=== PATIENT | male | born 1950 | race Caucasian/White ===

== ENCOUNTER 2017-07-08 17:30 | Emergency (ER) | payer OTHER, MEDICARE, SELFPAY ==
[2017-07-08 18:30] LABS: HEMATOCRIT 43.9 % (42.0-52.0); HEMOGLOBIN 15.5 g/dl (13.5-17.5); MEAN CORPUSCULAR HEMOGLOBIN 33.9 pg (27.0-33.0); MEAN CORPUSCULAR HGB CONC 35.3 g/dl (32.0-36.5); MEAN CORPUSCULAR VOLUME 96.1 fl (80.0-96.0); PLATELET COUNT, AUTOMATED 223 10^3/uL (150-450); RED BLOOD COUNT 4.57 10^6/uL (4.30-6.10); RED CELL DISTRIBUTION WIDTH 12.3 % (11.5-14.5); WHITE BLOOD COUNT 6.1 10^3/uL (4.0-10.0)
[2017-07-08 18:48] LABS: AMMONIA 34 uMOL/L (<32)
[2017-07-08 18:53] LABS: ACETAMINOPHEN LEVEL < 2.0 UG/ML (10.0-30.0); ALBUMIN 3.6 GM/DL (3.2-5.2); ALBUMIN/GLOBULIN RATIO 1.38 (1.00-1.93); ALKALINE PHOSPHATASE 63 U/L (45-117); ALT/SGPT 66 U/L (12-78); ANION GAP 12 MEQ/L (8-16); AST/SGOT 87 U/L (7-37); BILIRUBIN,DIRECT 0.2 MG/DL (0.0-0.2); BILIRUBIN,TOTAL 0.5 MG/DL (0.2-1.0); BLOOD UREA NITROGEN 7 MG/DL (7-18); CALCIUM LEVEL 7.7 MG/DL (8.8-10.2); CARBON DIOXIDE LEVEL 24 MEQ/L (21-32); CHLORIDE LEVEL 99 MEQ/L (98-107); CPK CREATINE PHOSPHOKINASE 135 U/L (39-308); CREATININE FOR GFR 0.51 MG/DL (0.70-1.30); GLOMERULAR FILTRATION RATE > 60.0 (>49); GLUCOSE, FASTING 85 MG/DL (70-100); SALICYLATE LEVEL < 1.7 MG/DL (5.0-30.0); SODIUM LEVEL 135 MEQ/L (136-145); TOTAL PROTEIN 6.2 GM/DL (6.4-8.2); TROPONIN I < 0.02 NG/ML (< 0.10)
[2017-07-08 18:56] LABS: CK-MB VALUE MASS 12.3 NG/ML (<3.6); ETHYL ALCOHOL (ETHANOL) 0.371 % (0.000-0.010); FREE T4 1.12 NG/DL (0.76-1.46); MB/CK RELATIVE INDEX 9.11 (< OR =4)
[2017-07-08 19:19] LABS: KETONE, URINE AUTO RFX 1+ mg/dL (NEGATIVE); LEUKOCYTE ESTERASE UR AUTO RFX NEGATIVE (NEGATIVE); MUCUS, URINE RFX SMALL (NEGATIVE); NITRITE, URINE AUTO RFX NEGATIVE (NEGATIVE); RBC, URINE AUTO RFX 8 /HPF (0-3); SPECIFIC GRAVITY UR AUTO RFX 1.018 (1.002-1.035); SQUAM EPITHELIAL CELL UR AURFX 0 /HPF (0-6); WBC, URINE AUTO RFX 2 /HPF (0-3)
[2017-07-08 19:52] LABS: AMPHETAMINES LEVEL URINE NEGATIVE (NEGATIVE); BARBITURATES URINE NEGATIVE (NEGATIVE); BENZODIAZEPINES URINE NEGATIVE (NEGATIVE); CANNABINOIDS URINE NEGATIVE (NEGATIVE); COCAINE METABOLITE URINE NEGATIVE (NEGATIVE); METHADONE URINE NEGATIVE (NEGATIVE); OPIATES URINE NEGATIVE (NEGATIVE); PHENCYCLIDINE URINE NEGATIVE (NEGATIVE)
[2017-07-09] MEDS: IPRATROPIUM 0.5MG/ALBUTEROL 2.5MG INH SOL UD 3ML (DUONEB)(J7620) NEB (00:13)
[2017-07-09] MEDS: LISINOPRIL 10 MG TAB PO (00:34)
== END 2017-07-09 11:01 ==
LOC: M ED 17:30
DX: F10.129 Alcohol abuse with intoxication, unspecified (principal); R45.851 Suicidal ideations; R18.8 Other ascites; Z79.899 Other long term (current) drug therapy
CPT/HCPCS: 71045

== ENCOUNTER → 2017-10-15 | Outpatient (CLI) | payer MEDICARE, OTHER | LOC: M RAD 12:07 | DX: J34.89 Other specified disorders of nose and nasal sinuses (principal) | CPT/HCPCS: 70486 ==

== ENCOUNTER → 2019-06-08 | Outpatient (CLI) | payer MEDICARE, OTHER ==
[~2019-06-08] MED LIST: ALBU83IN INH; LISI10TA4 PO
--- NOTE | 2019-06-08 11:27 | REP ---
REASON: Tobacco abuse. PRIORS: None. As per the protocol only lung window images were sent to the read station for the interpretation. There is lung field hyperexpansion. There is mild cylindrical bronchiectasis. There are a few curvilinear and asymmetric lung densities particularly in the inferior right upper lobe and right middle lobe. There is biapical pleuroparenchymal scarring right greater than left. There are pleural blebs right greater than left in the apical regions. There are no abnormal nodules. Grossly the mediastinum and pulmonary poppy are within normal limits. Grossly the imaged upper abdomen and imaged osseous structures are within normal limits. IMPRESSION: Emphysematous changes and other chronic lung field changes as described above. There are no abnormal nodules. Lung-RADS category 1S exam. Electronically Signed by Ernie Dietz DO 06/08/2019 11:52 A
== END ==
LOC: M RAD 10:23
PROVIDERS: ATTEND Internal Medicine Pulmonary Disease
DX: Z87.891 Personal history of nicotine dependence (principal)

== ENCOUNTER → 2021-01-25 | Outpatient (REF) | payer MEDICARE, OTHER ==
[~2021-01-25] MED LIST changes: +LISI10TA22 PO; -LISI10TA4 PO
== END ==
LOC: M LAB REF 17:31
PROVIDERS: ATTEND Orthopaedic Surgery
DX: M72.0 Palmar fascial fibromatosis [Dupuytren] (principal)

== ENCOUNTER → 2021-08-01 | Outpatient (REF) ==
[~2021-08-01] MED LIST changes: +ALBU2.5V10 INH; -ALBU83IN INH
== END ==
LOC: M LAB LCGH 10:46
DX: Z79.899 Other long term (current) drug therapy (principal)

== ENCOUNTER → 2021-08-02 | Outpatient (REF) | LOC: M LAB LCGH 09:08 | PROVIDERS: ATTEND Internal Medicine | DX: Z79.899 Other long term (current) drug therapy (principal) ==

== ENCOUNTER → 2022-05-02 | Outpatient (CLI) | payer MEDICARE, OTHER ==
[~2022-05-02] MED LIST changes: +BARIUM SULFATE 700 MG TABLET (E-Z-DISK) As Ordered ONE; +E-Z-PAQUE 96% w/w SUSP 176GM BTL As Ordered ONE; +VARIBAR NECTAR 40% w/v 240ML SUSP BTL As Ordered ONE; +VARIBAR PUDDING 40% w/v 230ML TUBE As Ordered ONE
== END ==
LOC: M RAD 10:33
PROVIDERS: ATTEND Internal Medicine Critical Care Medicine
DX: R13.10 Dysphagia, unspecified (principal)

== ENCOUNTER 2022-05-23 13:43 | Outpatient (RCR) | payer MEDICARE, OTHER ==
[~2022-05-23 13:43] MED LIST changes: -BARIUM SULFATE 700 MG TABLET (E-Z-DISK) As Ordered ONE; -E-Z-PAQUE 96% w/w SUSP 176GM BTL As Ordered ONE; -VARIBAR NECTAR 40% w/v 240ML SUSP BTL As Ordered ONE; -VARIBAR PUDDING 40% w/v 230ML TUBE As Ordered ONE
== END 2022-05-24 ==
LOC: M ST 13:43
PROVIDERS: ATTEND Internal Medicine Critical Care Medicine
DX: R13.13 Dysphagia, pharyngeal phase (principal)

== ENCOUNTER 2022-10-30 01:29 | Observation (INO) | payer MEDICARE, OTHER ==
[~2022-10-30] VITALS: Ht 172.7 cm; Wt 67.8 kg
[2022-10-30 02:22] LABS: VENOUS BASE EXCESS -3.3 (-2.0-2.0); VENOUS HCO3 24.6 MMOL/L (23.0-27.0); VENOUS O2 SATURATION 60.2 % (60.0-80.0); VENOUS PARTIAL PRESSURE CO2 54.3 mmHg (38.0-50.0); VENOUS PARTIAL PRESSURE O2 35.2 mmHg (30.0-50.0); VENOUS PH 7.274 UNITS (7.330-7.430); VENOUS STANDARD HCO3 20.7 MMOL/L; VENOUS TOTAL CO2 26.3 MMOL/L (24.0-28.0)
[2022-10-30 02:23] LABS: BASO # 0.1 10^3/uL (0.0-0.2); BASO % 0.4 % (0.0-1.0); EOS # 0.1 10^3/uL (0.0-0.5); EOS % 0.6 % (0.0-3.0); HEMATOCRIT 48.8 % (42.0-52.0); HEMOGLOBIN 16.8 g/dl (13.5-17.5); LYMPH % 8.3 % (24.0-44.0); MEAN CORPUSCULAR HGB CONC 34.4 g/dl (32.0-36.5); MEAN CORPUSCULAR VOLUME 95.9 fl (80.0-96.0); MONO # 0.9 10^3/uL (0.0-0.8); MONO % 7.7 % (2.0-8.0); NEUTROPHILS # 10.1 10^3/uL (1.5-8.5); NEUTROPHILS % 82.6 % (36.0-66.0); PLATELET COUNT, AUTOMATED 315 10^3/uL (150-450); RED BLOOD COUNT 5.09 10^6/uL (4.30-6.10); WHITE BLOOD COUNT 12.2 10^3/uL (4.0-10.0)
[2022-10-30 02:32] LABS: OSMOLALITY SERUM 322 MOSM/KG (280-301)
[2022-10-30 02:34] LABS: ETHYL ALCOHOL (ETHANOL) 0.232 % (0.000-0.010)
[2022-10-30 02:35] LABS: ACETAMINOPHEN LEVEL < 2.0 UG/ML (10.0-20.0); SALICYLATE LEVEL < 3.0 MG/DL (<30)
[2022-10-30 02:38] LABS: ALBUMIN 4.1 G/DL (3.2-5.2); ALKALINE PHOSPHATASE 84 U/L (46-116); ALT/SGPT 34 U/L (7.0-40); AST/SGOT 39 U/L (<34); BILIRUBIN,DIRECT 0.2 MG/DL (<0.4); BILIRUBIN,TOTAL 0.5 MG/DL (0.3-1.2); BLOOD UREA NITROGEN < 5 MG/DL (9-23); CALCIUM LEVEL 8.8 MG/DL (8.3-10.6); CARBON DIOXIDE LEVEL 26 MMOL/L (20-31); CHLORIDE LEVEL 94 MMOL/L (98-107); CK-MB VALUE MASS 2.2 NG/ML (<3.6); CPK CREATINE PHOSPHOKINASE 220 U/L (46-171); GLOMERULAR FILTRATION RATE > 60.0 (>42); GLUCOSE, FASTING 84 MG/DL (74-106); POTASSIUM SERUM 4.3 MMOL/L (3.5-5.1); SODIUM LEVEL 129 MMOL/L (136-145); THYROID STIMULATING HORMONE 3.115 uIU/ML (0.55-4.78)
[2022-10-30] MEDS ORDERED: ALBUTEROL SULFATE 2.5MG/0.5ML INH NEB SOLN INH ONE (02:45)
[2022-10-30] MEDS ORDERED: methylPREDNISolone 125MG 2ML VIAL IV ONE (02:45)
[2022-10-30] MEDS ORDERED: IPRATROPIUM 0.5MG/ALBUTEROL 2.5MG INH SOL UD 3ML (DUONEB) NEB ONE (02:45)
[2022-10-30] MEDS ORDERED: NS 1,000 ML IV ONE (02:50)
[2022-10-30 03:15] LABS: AMPHETAMINES LEVEL URINE NEGATIVE (NEGATIVE); BARBITURATES URINE NEGATIVE (NEGATIVE); BENZODIAZEPINES URINE NEGATIVE (NEGATIVE); CANNABINOIDS URINE NEGATIVE (NEGATIVE); COCAINE METABOLITE URINE NEGATIVE (NEGATIVE); METHADONE URINE NEGATIVE (NEGATIVE); OPIATES URINE NEGATIVE (NEGATIVE); PHENCYCLIDINE URINE NEGATIVE (NEGATIVE)
[2022-10-30] MEDS ORDERED: LIDOCAINE W/EPINEPHRINE 1% 20ML VIAL SC ONE (04:35)
[2022-10-30] MEDS ORDERED: LIDOCAINE 2% MDV 20ML VIAL SC ONE (04:45)
[2022-10-30] MEDS ORDERED: BOOSTRIX VACCINE (TETANUS/DIPHTH/ACEL. PERTUSSIS) 0.5ML SYR IM.IMMUN ONE (05:30)
[2022-10-30 06:50] LABS: CK-MB VALUE MASS 1.9 NG/ML (<3.6)
[2022-10-30 06:55] LABS: MB/CK RELATIVE INDEX 1.18 (< OR =4)
[2022-10-30] MEDS: TIOTROPIUM INHALER/CAPSULE (SPIRIVA) INH SCH (08:00)
[2022-10-30] MEDS: ADVAIR HFA 45/21MCG INHALER INH SCH ×2 (08:00→19:31)
[2022-10-30] MEDS ORDERED: MED REC IN PROGRESS XX SCH (08:40)
[2022-10-30] MEDS ORDERED: HYDR-3363 PO (09:01)
[2022-10-30] MEDS ORDERED: HYDR10TAB PO (09:01)
[2022-10-30] MEDS ORDERED: TREL1AER INH (09:01)
[2022-10-30] MEDS ORDERED: HOME MED LIST COMPLETE! XX SCH (09:05)
[2022-10-30] MEDS ORDERED: MOM 30ML SUSPENSION UDC PO PRN (09:20)
[2022-10-30] MEDS: DOXYCYCLINE HYCLATE 100MG TABLET PO SCH ×2 (09:38→20:06)
[2022-10-30] MEDS: DOCUSATE SODIUM 100MG CAPSULE PO SCH ×2 (09:38→20:06)
[2022-10-30] MEDS: ACETAMINOPHEN TAB 650MG DOSE (2X325MG) PO PRN (09:41)
[2022-10-30] MEDS: predniSONE 20 MG TAB PO SCH (09:47)
[2022-10-30] MEDS: IPRATROPIUM 0.5MG/ALBUTEROL 2.5MG INH SOL UD 3ML (DUONEB) NEB SCH ×3 (09:59→19:31)
[2022-10-30 10:29] LABS: INR 0.88; PROTHROMBIN TIME 11.7 SECONDS (12.5-14.5)
[2022-10-30] MEDS ORDERED: LORazepam 2 MG TAB PO PRN (10:40)
[2022-10-30] MEDS: FOLIC ACID 1MG TAB PO SCH (11:56)
[2022-10-30] MEDS: THIAMINE 100 MG TAB PO SCH ×2 (11:57→20:04)
[2022-10-30] MEDS: MULTIVITAMINS/MINERALS THERAP 1 TAB PO SCH (11:57)
[2022-10-30 16:10] VITALS: BP 133/84; TEMP 98.8; O2SAT 95
[2022-10-30] MEDS: RIVAROXABAN 10MG TAB (XARELTO) PO SCH (18:23)
[2022-10-30 18:30] VITALS: BP_SYST 132; BP_SYST 136; BP_SYST 137; BP_DIAS 79; BP_DIAS 80
[2022-10-30 18:51] LABS: OSMOLALITY URINE 288 MOSM/KG (50-1400)
[2022-10-30 18:55] LABS: SODIUM,RANDOM URINE 34 MMOL/L
[2022-10-30 20:00] VITALS: BP 101/65
[2022-10-30] MEDS: **hydrALAZINE** 10 MG TAB PO SCH (20:06)
[2022-10-30 21:06] VITALS: BP 101/65; TEMP 97.9; O2SAT 93
[2022-10-31] MEDS: IPRATROPIUM 0.5MG/ALBUTEROL 2.5MG INH SOL UD 3ML (DUONEB) NEB SCH ×4 (01:10→19:36)
[2022-10-31] MEDS: ACETAMINOPHEN TAB 650MG DOSE (2X325MG) PO PRN (02:47)
[2022-10-31 04:00] VITALS: BP 126/84
[2022-10-31 05:30] VITALS: BP 111/68; TEMP 98.6; O2SAT 96
[2022-10-31 06:08] LABS: HEMATOCRIT 39.6 % (42.0-52.0); MEAN CORPUSCULAR HEMOGLOBIN 32.3 pg (27.0-33.0); MEAN CORPUSCULAR HGB CONC 34.1 g/dl (32.0-36.5); MEAN CORPUSCULAR VOLUME 94.7 fl (80.0-96.0); PLATELET COUNT, AUTOMATED 261 10^3/uL (150-450); RED BLOOD COUNT 4.18 10^6/uL (4.30-6.10); WHITE BLOOD COUNT 7.5 10^3/uL (4.0-10.0)
[2022-10-31 06:15] LABS: HEMOGLOBIN 13.5 g/dl (13.5-17.5)
[2022-10-31 06:42] LABS: ALBUMIN 3.2 G/DL (3.2-5.2); ALKALINE PHOSPHATASE 72 U/L (46-116); ALT/SGPT 26 U/L (7.0-40); AST/SGOT 25 U/L (<34); BILIRUBIN,TOTAL 0.8 MG/DL (0.3-1.2); BLOOD UREA NITROGEN 6 MG/DL (9-23); CALCIUM LEVEL 8.5 MG/DL (8.3-10.6); CARBON DIOXIDE LEVEL 28 MMOL/L (20-31); CHLORIDE LEVEL 99 MMOL/L (98-107); CREATININE FOR GFR 0.65 MG/DL (0.70-1.30); GLOMERULAR FILTRATION RATE > 60.0 (>42); GLUCOSE, FASTING 92 MG/DL (74-106); SODIUM LEVEL 135 MMOL/L (136-145); TOTAL PROTEIN 5.3 G/DL (5.7-8.2)
[2022-10-31] MEDS: TIOTROPIUM INHALER/CAPSULE (SPIRIVA) INH SCH (07:40)
[2022-10-31] MEDS: ADVAIR HFA 45/21MCG INHALER INH SCH ×2 (07:41→19:36)
[2022-10-31] MEDS: FOLIC ACID 1MG TAB PO SCH (10:22)
[2022-10-31] MEDS: DOXYCYCLINE HYCLATE 100MG TABLET PO SCH ×2 (10:22→20:26)
[2022-10-31] MEDS: predniSONE 20 MG TAB PO SCH (10:23)
[2022-10-31] MEDS: MULTIVITAMINS/MINERALS THERAP 1 TAB PO SCH (10:23)
[2022-10-31] MEDS: THIAMINE 100 MG TAB PO SCH ×2 (10:23→20:26)
[2022-10-31] MEDS: DOCUSATE SODIUM 100MG CAPSULE PO SCH ×2 (10:23→20:26)
[2022-10-31 13:14] VITALS: BP 143/90
[2022-10-31 14:00] VITALS: BP 132/80; TEMP 98.4; O2SAT 96
[2022-10-31] MEDS: RIVAROXABAN 10MG TAB (XARELTO) PO SCH (17:16)
[2022-10-31 20:19] VITALS: BP 130/70
[2022-10-31] MEDS: **hydrALAZINE** 10 MG TAB PO SCH (20:26)
[2022-11-01] MEDS: IPRATROPIUM 0.5MG/ALBUTEROL 2.5MG INH SOL UD 3ML (DUONEB) NEB SCH ×2 (02:52→07:55)
[2022-11-01 05:56] LABS: HEMATOCRIT 40.4 % (42.0-52.0); HEMOGLOBIN 13.7 g/dl (13.5-17.5); MEAN CORPUSCULAR HEMOGLOBIN 32.5 pg (27.0-33.0); MEAN CORPUSCULAR HGB CONC 33.9 g/dl (32.0-36.5); MEAN CORPUSCULAR VOLUME 95.7 fl (80.0-96.0); PLATELET COUNT, AUTOMATED 253 10^3/uL (150-450); RED BLOOD COUNT 4.22 10^6/uL (4.30-6.10); WHITE BLOOD COUNT 7.3 10^3/uL (4.0-10.0)
[2022-11-01 06:00] VITALS: BP 117/91; TEMP 98.2; O2SAT 91
[2022-11-01 06:21] LABS: ALBUMIN 3.2 G/DL (3.2-5.2); ALKALINE PHOSPHATASE 65 U/L (46-116); ALT/SGPT 28 U/L (7.0-40); AST/SGOT 29 U/L (<34); BILIRUBIN,TOTAL 0.7 MG/DL (0.3-1.2); BLOOD UREA NITROGEN 8 MG/DL (9-23); CALCIUM LEVEL 8.5 MG/DL (8.3-10.6); CARBON DIOXIDE LEVEL 28 MMOL/L (20-31); CHLORIDE LEVEL 99 MMOL/L (98-107); GLOMERULAR FILTRATION RATE > 60.0 (>42); GLUCOSE, FASTING 89 MG/DL (74-106); POTASSIUM SERUM 3.8 MMOL/L (3.5-5.1); SODIUM LEVEL 133 MMOL/L (136-145); TOTAL PROTEIN 5.6 G/DL (5.7-8.2)
[2022-11-01] MEDS: ADVAIR HFA 45/21MCG INHALER INH SCH (07:54)
[2022-11-01] MEDS: TIOTROPIUM INHALER/CAPSULE (SPIRIVA) INH SCH (07:54)
[2022-11-01] MEDS: FOLIC ACID 1MG TAB PO SCH (08:09)
[2022-11-01] MEDS: DOXYCYCLINE HYCLATE 100MG TABLET PO SCH (08:09)
[2022-11-01] MEDS: THIAMINE 100 MG TAB PO SCH (08:09)
[2022-11-01] MEDS: predniSONE 20 MG TAB PO SCH (08:09)
[2022-11-01] MEDS: MULTIVITAMINS/MINERALS THERAP 1 TAB PO SCH (08:09)
[2022-11-01 08:10] VITALS: BP 130/83
[2022-11-01] MEDS: DOCUSATE SODIUM 100MG CAPSULE PO SCH (08:10)
[2022-11-01 08:13] VITALS: BP 130/83
[2022-11-01] MEDS ORDERED: FOLI1TAB11 PO (10:03)
[2022-11-01] MEDS ORDERED: VITMTA PO (10:03)
[2022-11-01] MEDS ORDERED: PRED20TA PO (10:03)
[2022-11-01] MEDS ORDERED: THIA100TA PO (10:03)
== END 2022-11-01 15:58 | disposition home or self-care (01) ==
LOC: M ED 01:29 → M ED INP 09:19 → M MSPAV 16:00
PROVIDERS: ADMIT Student in an Organized Health Care Education/Training Program; ATTEND Student in an Organized Health Care Education/Training Program
DX: J44.1 Chronic obstructive pulmonary disease with (acute) exacerbation (principal); R29.6 Repeated falls; S01.01XA Laceration without foreign body of scalp, initial encounter; S63.254A Unspecified dislocation of right ring finger, initial encounter; W19.XXXA Unspecified fall, initial encounter; Y92.89 Other specified places as the place of occurrence of the external cause; F10.929 Alcohol use, unspecified with intoxication, unspecified; E87.1 Hypo-osmolality and hyponatremia; E87.21 Acute metabolic acidosis; I10 Essential (primary) hypertension; J96.21 Acute and chronic respiratory failure with hypoxia; Z79.51 Long term (current) use of inhaled steroids; Z79.52 Long term (current) use of systemic steroids; Z79.899 Other long term (current) drug therapy
CPT/HCPCS: 12002; 36415; 70450; 70486; 71045; 72125; 73130; 80048; 80053; 80076; 80143; 80307; 81001; 82077; 82550; 82553; 82803; 83605; 83930; 83935; 84300; 84443; 84484; 85025; 85027; 85610; 87040; 87486; 87581; 87633; 87798; 90471; 90715; 93005; 93041; 94010; 94640; 94760; 96374; 96375; 97161; 97530; 99285; G0378; J2930; J7512

== ENCOUNTER → 2023-04-02 | Outpatient (CLI) | payer MEDICARE, OTHER ==
[~2023-04-02] MED LIST changes: +FOLI1TAB11 PO; +HYDR-161 PO; +HYDR-3363 PO; +PRED20TA PO; +THIA100TA PO; +TREL1AER INH; +VITMTA PO
== END ==
LOC: M SOG 14:01
PROVIDERS: ATTEND Physician Assistant
DX: M54.50 Low back pain, unspecified (principal); I71.40 Abdominal aortic aneurysm, without rupture, unspecified; S32.030A Wedge compression fracture of third lumbar vertebra, initial encounter for closed fracture; M51.46 Schmorl's nodes, lumbar region